=== PATIENT | female | born 1980 | race American Indian/Alaskan Native ===

== ENCOUNTER 2017-06-10 19:41 | Emergency (ER) | payer SELFPAY ==
[2017-06-10] MEDS ORDERED: TYLENOL ONE (20:23)
[2017-06-10] MEDS ORDERED: TYLENOL PO ONE (20:25)
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
[2017-06-10 23:56] VITALS: BP 140/90
== END 2017-06-10 23:30 | disposition home or self-care (01) ==
LOC: ED 19:41
DX: S00.03XA Contusion of scalp, initial encounter (principal); M54.2 Cervicalgia; V87.7XXA Person injured in collision between other specified motor vehicles (traffic), initial encounter; Y93.89 Activity, other specified; Y99.8 Other external cause status; Y92.410 Unspecified street and highway as the place of occurrence of the external cause
CPT/HCPCS: 70450; 72125; 99283